=== PATIENT | female | born 1985 | race Caucasian/White ===

== ENCOUNTER 2016-09-09 10:51 | Day surgery (SDC) | payer OTHER ==
[~2016-09-09] VITALS: Ht 170.2 cm; Wt 95.3 kg
[~2016-09-09 10:51] MED LIST: ADVIL,NUPRIN,M200 MG PO; CITALOPRAM HBR40 MG PO; ENDOCET 5-3251 EACH PO; IBUPROFEN800 MG PO; KLONOPIN0.5 M1 PO; MIRENA52 MG IY; PRENATAL TABLE1 EAC3 PO; TRAMADOL HCL50 MG PO; TYLENOL EXTRA500 MG PO; ZANTAC150 MG PO; ZOFRAN8 MG PO; ZYRTEC10 M3 PO
[2016-09-09 11:22] VITALS: BP 135/65
[2016-09-09] MEDS ORDERED: COLACE100 MG PO (16:41)
[2016-09-09] MEDS ORDERED: PERCOCET 5/31 TABLET PO (16:41)
[2016-09-09 17:45] VITALS: BP 116/70
[2016-09-09 18:45] VITALS: BP 120/69
== END 2016-09-09 18:59 | disposition home or self-care (01) ==
LOC: SDC 10:51
PROC: 0FT44ZZ Resection of Gallbladder, Percutaneous Endoscopic Approach (ICD-10-PCS; principal; 2016-09-09)
DX: K80.10 Calculus of gallbladder with chronic cholecystitis without obstruction (principal); E66.3 Overweight; Z68.34 Body mass index [BMI] 34.0-34.9, adult; Z83.3 Family history of diabetes mellitus; Z82.49 Family history of ischemic heart disease and other diseases of the circulatory system; Z88.0 Allergy status to penicillin
CPT/HCPCS: 88304; C1769; J0330; J0744; J1100; J1170; J1885; J2175; J2250; J2405; J2710; J2765; J3010